=== PATIENT | male | born 1935 | race Asian ===

== ENCOUNTER 2017-09-12 10:24 | Outpatient (CLI) | payer MEDICARE, MEDICAID | END 2017-09-13 11:27 | disposition home or self-care (01) | LOC: SCT 10:24 | PROVIDERS: ATTEND General Practice | DX: I65.29 Occlusion and stenosis of unspecified carotid artery (principal); R22.1 Localized swelling, mass and lump, neck | CPT/HCPCS: 70450-TC; 70490 ==

== ENCOUNTER 2018-02-08 07:27 | Inpatient (IN) | payer MEDICAID, MEDICARE ==
[~2018-02-08] VITALS: Ht 162.6 cm; Wt 55.8 kg
[2018-02-08] VITALS (7 sets, daily range): BP systolic 108–141
[2018-02-08 08:13] LABS: HEMATOCRIT 35.3 % (36-54); HEMOGLOBIN 11.3 g/dL (14.0-18.0); MEAN CORPUSCULAR HEMOGLOBIN 30 pg (27-31); MEAN CORPUSCULAR HGB CONC 32 % (32-36); MEAN CORPUSCULAR VOLUME 93 fL (79.0-98.0); PLATELET COUNT (AUTO) 188 K/uL (130-430); RED BLOOD CELL COUNT(AUTO) 3.81 MIL/uL (4.2-6.2); RED CELL DISTRIBUTION WIDTH 20.7 % (9.0-15.0); WHITE BLOOD COUNT (AUTO) 13.3 K/uL (4.8-10.8)
[2018-02-08 08:30] LABS: ANION GAP 9 (5-15); CALCIUM 12.2 mg/dL (8.4-11.0); CHLORIDE 114 mmol/L (98-107); CREATININE 2.54 mg/dL (0.55-1.30); GLUCOSE 134 mg/dL (70-99); POTASSIUM 4.3 mmol/L (3.5-5.1); SODIUM SERUM 157 mmol/L (136-145); UREA NITROGEN, BLOOD 88 mg/dL (8-21)
[2018-02-08 08:35] LABS: ALANINE AMINOTRANSFERASE 24 U/L (12-78); ASPARTATE AMINOTRANSFERASE 21 U/L (10-37); TOTAL BILIRUBIN 0.4 mg/dL (0.0-1.0)
[2018-02-08] MEDS ORDERED: GASTROGRAFIN 120 ML ONE (08:51)
[2018-02-08 08:52] LABS: BASOPHILS % (MANUAL) 0 % (0-2); EOSINOPHILS % (MANUAL) 11 % (0-7); LYMPHOCYTES % (MANUAL) 20 % (20-46); MONOCYTES % (MANUAL) 2 % (0-11)
[2018-02-08] MEDS ORDERED: LACT1CAP61 GT (10:54)
[2018-02-08] MEDS ORDERED: LEVE500T53 GT (10:54)
[2018-02-08] MEDS ORDERED: VANCOMYCIN (10:54)
[2018-02-08] MEDS ORDERED: CARV3.1246 GT (10:54)
[2018-02-08] MEDS ORDERED: HYDR-3606 GT (10:54)
[2018-02-08] MEDS ORDERED: FER300L GT (10:54)
[2018-02-08] MEDS ORDERED: IPRA42SP NS (10:54)
[2018-02-08] MEDS ORDERED: PRO40 GT (10:54)
[2018-02-08] MEDS ORDERED: FURO-150 GT (10:54)
[2018-02-08] MEDS ORDERED: MERO500V IV (10:54)
[2018-02-08] MEDS ORDERED: TAMS-11 GT (10:54)
[2018-02-08] MEDS ORDERED: ALEN70TA3 GT (10:54)
[2018-02-08] MEDS ORDERED: ALBU2.5V7 INH (10:54)
[2018-02-08] MEDS ORDERED: COLL100 GT (10:54)
[2018-02-08] MEDS ORDERED: LIP10 GT (10:54)
[2018-02-08 11:23] LABS: PROTHROMBIN TIME 9.9 SECS (9.5-12.5)
[2018-02-08] MEDS: cefTRIAXone 1 GM in D5W 50 ML IV SCH (12:30)
[2018-02-08] MEDS ORDERED: NACL 0.9% 1,000 ML IV SCH (12:30)
[2018-02-08] MEDS ORDERED: MUPIROCIN 2% TOPICAL OINTMENT 22 GM NS PRN (15:15)
[2018-02-08] MEDS ORDERED: ONDANSETRON HCL 4 MG/2 ML VIAL IVP PRN (15:15)
[2018-02-08] MEDS ORDERED: MORPHINE 2 MG/ML INJ. SYRINGE IVP PRN (15:15)
[2018-02-08] MEDS ORDERED: DOCUSATE SODIUM 100 MG CAPSULE PO PRN (15:15)
[2018-02-08] MEDS ORDERED: ACETAMINOPHEN 325 MG TABLET PO PRN (15:15)
[2018-02-08] MEDS ORDERED: ZOLPIDEM TARTRATE 5 MG TABLET PO PRN (15:15)
[2018-02-08] MEDS ORDERED: MAGNESIUM SULFATE 50 ML IV PRN (15:15)
[2018-02-08] MEDS: D5/0.45 NS 1,000 ML IV SCH (19:03)
[2018-02-08] MEDS: LORazepam 2 MG/ML VIAL IVP PRN (20:37)
[2018-02-08] MEDS: HEPARIN SODIUM,PORCINE 5000 UNITS/ML VIAL SUBCUT SCH (20:44)
[2018-02-08] MEDS: TAMSULOSIN HCL 0.4 MG CAP GT SCH (20:46)
[2018-02-08] MEDS: CARVEDILOL 3.125 MG TABLET (COREG) GT SCH (20:46)
[2018-02-08] MEDS: levETIRAcetam 500 MG TABLET GT SCH (20:46)
[2018-02-09] MEDS: LORazepam 2 MG/ML VIAL IVP PRN (02:47)
[2018-02-09] MEDS: D5/0.45 NS 1,000 ML IV SCH (02:51)
[2018-02-09 04:28] LABS: BILIRUBIN,URINE NEGATIVE (NEGATIVE); CLARITY/URINE SL CLOUDY (CLEAR); COLOR,URINE YELLOW (YELLOW); GLUCOSE,URINE NEGATIVE (NEGATIVE); KETONES,URINE NEGATIVE (NEGATIVE); LEUKOCYTE ESTERASE ,URINE 1+ (NEGATIVE); NITRITE, URINE NEGATIVE (NEGATIVE); PROTEIN URINE 2+ (NEGATIVE); UROBILINOGEN,URINE 0.2 (0.2-1.0)
[2018-02-09 04:29] LABS: BLOOD, URINE TRACE (NEGATIVE)
[2018-02-09 05:21] LABS: BACTERIA,URINE MANY /HPF (None Seen); MUCUS,URINE None Seen /LPF (None Seen); YEAST,URINE None Seen /HPF (None Seen)
[2018-02-09 06:34] LABS: ANION GAP 5 (5-15); CALCIUM 11.5 mg/dL (8.4-11.0); CHLORIDE 112 mmol/L (98-107); GLUCOSE 222 mg/dL (70-99); POTASSIUM 3.6 mmol/L (3.5-5.1); SODIUM SERUM 156 mmol/L (136-145); UREA NITROGEN, BLOOD 96 mg/dL (8-21)
[2018-02-09 06:35] LABS: BASOPHILS % (AUTO) 0.4 % (0.0-2.0); EOSINOPHILS # (AUTO) 0.2 K/uL (0.0-0.4); EOSINOPHILS % (AUTO) 2.2 % (0.0-4.0); HEMATOCRIT 30.5 % (36-54); HEMOGLOBIN 9.7 g/dL (14.0-18.0); LYMPHOCYTES # (AUTO) 1.4 K/uL (1.0-5.5); LYMPHOCYTES % (AUTO) 13.5 % (20.5-51.5); MEAN CORPUSCULAR HEMOGLOBIN 30 pg (27-31); MEAN CORPUSCULAR HGB CONC 32 % (32-36); MEAN CORPUSCULAR VOLUME 93 fL (79.0-98.0); MONOCYTES # (AUTO) 1.3 K/uL (0.0-1.0); NEUTROPHILS # (AUTO) 7.7 K/uL (1.8-7.7); NEUTROPHILS % (AUTO) 71.9 % (40.0-70.0); PLATELET COUNT (AUTO) 235 K/uL (130-430); RED BLOOD CELL COUNT(AUTO) 3.29 MIL/uL (4.2-6.2); RED CELL DISTRIBUTION WIDTH 20.1 % (9.0-15.0); WHITE BLOOD COUNT (AUTO) 10.6 K/uL (4.8-10.8)
[2018-02-09 07:50] VITALS: BP_SYST 113
[2018-02-09] MEDS: CARVEDILOL 3.125 MG TABLET (COREG) GT SCH ×2 (09:00→21:00)
[2018-02-09] MEDS: levETIRAcetam 500 MG TABLET GT SCH ×2 (09:00→21:00)
[2018-02-09] MEDS: DOCUSATE SODIUM 100 MG/10 ML UDC GT SCH (09:00)
[2018-02-09] MEDS: HEPARIN SODIUM,PORCINE 5000 UNITS/ML VIAL SUBCUT SCH ×2 (09:23→21:30)
[2018-02-09] MEDS: cefTRIAXone 1 GM in D5W 50 ML IV SCH (09:24)
[2018-02-09 12:17] VITALS: BP_SYST 104
[2018-02-09] MEDS: D5W 1,000 ML IV SCH ×2 (12:18→21:32)
[2018-02-09] MEDS ORDERED: ONDANSETRON HCL 4 MG/2 ML VIAL IVP PRN (14:15)
[2018-02-09] MEDS ORDERED: HYDROmorphone 1 MG INJ. 1 MG/ML AMPUL IVP PRN (14:15)
[2018-02-09] MEDS ORDERED: GASTROGRAFIN 120 ML ONE (14:50)
[2018-02-09 16:10] VITALS: BP_SYST 120
[2018-02-09] MEDS ORDERED: DEXTROSE 50% JECT 50 ML DISP.SYRIN IVP ONE (17:15)
[2018-02-09] MEDS ORDERED: DEXTROSE 50% JECT 50 ML DISP.SYRIN IVP PRN (17:30)
[2018-02-09 20:00] VITALS: BP_SYST 118
[2018-02-09] MEDS: TAMSULOSIN HCL 0.4 MG CAP GT SCH (21:00)
[2018-02-09] MEDS: INSULIN REGULAR, HUMAN 100 UNITS/ML, 10 ML VIAL (novoLIN R) SUBCUT PRN (21:30)
[2018-02-10 00:24] VITALS: BP_SYST 138
[2018-02-10] MEDS: D5W 1,000 ML IV SCH ×2 (06:26→16:09)
[2018-02-10 06:31] LABS: BASOPHILS # (AUTO) 0.1 K/uL (0.0-0.2); BASOPHILS % (AUTO) 0.5 % (0.0-2.0); EOSINOPHILS # (AUTO) 1.5 K/uL (0.0-0.4); EOSINOPHILS % (AUTO) 13.9 % (0.0-4.0); HEMATOCRIT 32.1 % (36-54); HEMOGLOBIN 10.4 g/dL (14.0-18.0); LYMPHOCYTES # (AUTO) 1.3 K/uL (1.0-5.5); LYMPHOCYTES % (AUTO) 11.9 % (20.5-51.5); MEAN CORPUSCULAR HEMOGLOBIN 30 pg (27-31); MEAN CORPUSCULAR HGB CONC 32 % (32-36); MEAN CORPUSCULAR VOLUME 92 fL (79.0-98.0); MONOCYTES % (AUTO) 9.4 % (1.7-9.3); NEUTROPHILS # (AUTO) 6.8 K/uL (1.8-7.7); NEUTROPHILS % (AUTO) 64.3 % (40.0-70.0); PLATELET COUNT (AUTO) 235 K/uL (130-430); RED BLOOD CELL COUNT(AUTO) 3.49 MIL/uL (4.2-6.2); RED CELL DISTRIBUTION WIDTH 19.8 % (9.0-15.0); WHITE BLOOD COUNT (AUTO) 10.7 K/uL (4.8-10.8)
[2018-02-10 06:46] LABS: ANION GAP 1 (5-15); CALCIUM 11.1 mg/dL (8.4-11.0); CHLORIDE 109 mmol/L (98-107); CREATININE 3.09 mg/dL (0.55-1.30); GLUCOSE 126 mg/dL (70-99); SODIUM SERUM 152 mmol/L (136-145); UREA NITROGEN, BLOOD 89 mg/dL (8-21)
[2018-02-10 06:57] LABS: POTASSIUM 2.9 mmol/L (3.5-5.1)
[2018-02-10 07:45] VITALS: BP_SYST 137
[2018-02-10] MEDS: DOCUSATE SODIUM 100 MG/10 ML UDC GT SCH (08:49)
[2018-02-10] MEDS: CARVEDILOL 3.125 MG TABLET (COREG) GT SCH ×2 (08:50→21:00)
[2018-02-10] MEDS: POTASSIUM CHLORIDE 20 MEQ TAB.PRT.SR PO PRN (08:50)
[2018-02-10] MEDS: levETIRAcetam 500 MG TABLET GT SCH ×2 (08:50→22:06)
[2018-02-10] MEDS: HEPARIN SODIUM,PORCINE 5000 UNITS/ML VIAL SUBCUT SCH ×2 (08:55→22:05)
[2018-02-10] MEDS ORDERED: POTASSIUM CHLORIDE 20 MEQ/PKT PACKET GT ONE (10:15)
[2018-02-10] MEDS: cefTRIAXone 1 GM in D5W 50 ML IV SCH (10:34)
[2018-02-10] MEDS: INSULIN REGULAR, HUMAN 100 UNITS/ML, 10 ML VIAL (novoLIN R) SUBCUT PRN ×2 (11:37→17:26)
[2018-02-10 12:38] VITALS: BP_SYST 111
[2018-02-10 15:54] LABS: ANION GAP 4 (5-15); CALCIUM 10.5 mg/dL (8.4-11.0); CHLORIDE 109 mmol/L (98-107); CREATININE 3.21 mg/dL (0.55-1.30); GLUCOSE 179 mg/dL (70-99); POTASSIUM 3.9 mmol/L (3.5-5.1); SODIUM SERUM 151 mmol/L (136-145); UREA NITROGEN, BLOOD 86 mg/dL (8-21)
[2018-02-10 16:34] VITALS: BP_SYST 136
[2018-02-10 19:10] VITALS: BP_SYST 116
[2018-02-10 22:03] LABS: CHLORIDE,URINE RANDOM 15 mmol/L (55-125)
[2018-02-10] MEDS: TAMSULOSIN HCL 0.4 MG CAP GT SCH (22:06)
[2018-02-10 23:37] VITALS: BP_SYST 116
[2018-02-11] MEDS: MORPHINE 2 MG/ML INJ. SYRINGE IVP PRN (05:14)
[2018-02-11] MEDS: INSULIN REGULAR, HUMAN 100 UNITS/ML, 10 ML VIAL (novoLIN R) SUBCUT PRN ×4 (06:05→22:26)
[2018-02-11 07:38] VITALS: BP_SYST 119
[2018-02-11 09:23] LABS: BASOPHILS # (AUTO) 0.1 K/uL (0.0-0.2); BASOPHILS % (AUTO) 0.9 % (0.0-2.0); EOSINOPHILS # (AUTO) 0.9 K/uL (0.0-0.4); HEMATOCRIT 31.5 % (36-54); HEMOGLOBIN 10.3 g/dL (14.0-18.0); LYMPHOCYTES # (AUTO) 1.2 K/uL (1.0-5.5); LYMPHOCYTES % (AUTO) 13.8 % (20.5-51.5); MEAN CORPUSCULAR HEMOGLOBIN 30 pg (27-31); MEAN CORPUSCULAR HGB CONC 33 % (32-36); MEAN CORPUSCULAR VOLUME 93 fL (79.0-98.0); MONOCYTES # (AUTO) 0.7 K/uL (0.0-1.0); MONOCYTES % (AUTO) 7.5 % (1.7-9.3); NEUTROPHILS # (AUTO) 5.9 K/uL (1.8-7.7); PLATELET COUNT (AUTO) 215 K/uL (130-430); RED BLOOD CELL COUNT(AUTO) 3.39 MIL/uL (4.2-6.2); RED CELL DISTRIBUTION WIDTH 19.5 % (9.0-15.0); WHITE BLOOD COUNT (AUTO) 8.8 K/uL (4.8-10.8)
[2018-02-11 09:24] VITALS: BP_SYST 119
[2018-02-11] MEDS: DOCUSATE SODIUM 100 MG/10 ML UDC GT SCH (09:26)
[2018-02-11] MEDS: levETIRAcetam 500 MG TABLET GT SCH ×2 (09:26→22:15)
[2018-02-11] MEDS: CARVEDILOL 3.125 MG TABLET (COREG) GT SCH ×2 (09:26→22:24)
[2018-02-11 09:28] LABS: ANION GAP 6 (5-15); CALCIUM 11.1 mg/dL (8.4-11.0); CHLORIDE 107 mmol/L (98-107); CREATININE 3.03 mg/dL (0.55-1.30); GLUCOSE 232 mg/dL (70-99); POTASSIUM 3.3 mmol/L (3.5-5.1); SODIUM SERUM 150 mmol/L (136-145); UREA NITROGEN, BLOOD 79 mg/dL (8-21)
[2018-02-11] MEDS: HEPARIN SODIUM,PORCINE 5000 UNITS/ML VIAL SUBCUT SCH ×2 (09:29→22:16)
[2018-02-11] MEDS: cefTRIAXone 1 GM in D5W 50 ML IV SCH (09:30)
[2018-02-11 11:49] LABS: URINE SODIUM, RANDOM 10 mmol/L (40-220)
[2018-02-11] MEDS: POTASSIUM CHLORIDE 20 MEQ TAB.PRT.SR PO PRN (11:54)
[2018-02-11 12:20] VITALS: BP_SYST 109
[2018-02-11 12:46] LABS: NEUTROPHILS % (AUTO) 67.8 % (40.0-70.0)
[2018-02-11] MEDS: 0.45% NACL 1,000 ML IV SCH (16:25)
[2018-02-11 16:57] VITALS: BP_SYST 107
[2018-02-11 19:30] VITALS: BP_SYST 117
[2018-02-11] MEDS: LORazepam 2 MG/ML VIAL IVP PRN (19:39)
[2018-02-11] MEDS: TAMSULOSIN HCL 0.4 MG CAP GT SCH (22:15)
[2018-02-11 23:33] VITALS: BP_SYST 111
[2018-02-12] MEDS: 0.45% NACL 1,000 ML IV SCH ×2 (04:20→11:30)
[2018-02-12] MEDS: MORPHINE 2 MG/ML INJ. SYRINGE IVP PRN (04:21)
[2018-02-12 06:07] LABS: ANION GAP 0 (5-15); CALCIUM 11.1 mg/dL (8.4-11.0); CHLORIDE 106 mmol/L (98-107); CREATININE 2.47 mg/dL (0.55-1.30); GLUCOSE 286 mg/dL (70-99); SODIUM SERUM 145 mmol/L (136-145); UREA NITROGEN, BLOOD 65 mg/dL (8-21)
[2018-02-12] MEDS: INSULIN REGULAR, HUMAN 100 UNITS/ML, 10 ML VIAL (novoLIN R) SUBCUT PRN ×4 (06:12→21:34)
[2018-02-12 06:15] LABS: BASOPHILS % (AUTO) 0.4 % (0.0-2.0); EOSINOPHILS # (AUTO) 0.8 K/uL (0.0-0.4); EOSINOPHILS % (AUTO) 8.6 % (0.0-4.0); HEMATOCRIT 26.3 % (36-54); HEMOGLOBIN 8.5 g/dL (14.0-18.0); LYMPHOCYTES % (AUTO) 11.2 % (20.5-51.5); MEAN CORPUSCULAR HEMOGLOBIN 30 pg (27-31); MEAN CORPUSCULAR HGB CONC 32 % (32-36); MEAN CORPUSCULAR VOLUME 92 fL (79.0-98.0); MONOCYTES # (AUTO) 0.6 K/uL (0.0-1.0); MONOCYTES % (AUTO) 6.9 % (1.7-9.3); NEUTROPHILS # (AUTO) 6.4 K/uL (1.8-7.7); NEUTROPHILS % (AUTO) 72.9 % (40.0-70.0); PLATELET COUNT (AUTO) 202 K/uL (130-430); RED BLOOD CELL COUNT(AUTO) 2.86 MIL/uL (4.2-6.2); RED CELL DISTRIBUTION WIDTH 19.7 % (9.0-15.0); WHITE BLOOD COUNT (AUTO) 8.8 K/uL (4.8-10.8)
[2018-02-12 06:55] LABS: POTASSIUM 2.9 mmol/L (3.5-5.1)
[2018-02-12] MEDS: POTASSIUM CHLORIDE 20 MEQ TAB.PRT.SR PO PRN (07:02)
[2018-02-12 08:25] VITALS: BP_SYST 121
[2018-02-12] MEDS: levETIRAcetam 500 MG TABLET GT SCH ×2 (08:26→21:32)
[2018-02-12] MEDS: CARVEDILOL 3.125 MG TABLET (COREG) GT SCH ×2 (08:27→21:32)
[2018-02-12] MEDS: DOCUSATE SODIUM 100 MG/10 ML UDC GT SCH (08:27)
[2018-02-12] MEDS: LORazepam 2 MG/ML VIAL IVP PRN (08:28)
[2018-02-12] MEDS: cefTRIAXone 1 GM in D5W 50 ML IV SCH (08:28)
[2018-02-12] MEDS: HEPARIN SODIUM,PORCINE 5000 UNITS/ML VIAL SUBCUT SCH ×2 (08:29→21:35)
[2018-02-12 11:31] VITALS: BP_SYST 116
[2018-02-12 13:54] LABS: ANION GAP 1 (5-15); CALCIUM 11.3 mg/dL (8.4-11.0); CHLORIDE 112 mmol/L (98-107); CREATININE 2.28 mg/dL (0.55-1.30); GLUCOSE 201 mg/dL (70-99); SODIUM SERUM 148 mmol/L (136-145); UREA NITROGEN, BLOOD 61 mg/dL (8-21)
[2018-02-12 13:59] LABS: POTASSIUM 4.2 mmol/L (3.5-5.1)
[2018-02-12 15:13] VITALS: BP_SYST 118
[2018-02-12] MEDS: NACL 0.9% 1,000 ML IV SCH (16:20)
[2018-02-12 19:50] VITALS: BP_SYST 126
[2018-02-12] MEDS: TAMSULOSIN HCL 0.4 MG CAP GT SCH (21:31)
[2018-02-13 00:10] VITALS: BP_SYST 119
[2018-02-13] MEDS: INSULIN REGULAR, HUMAN 100 UNITS/ML, 10 ML VIAL (novoLIN R) SUBCUT PRN ×4 (06:23→22:07)
[2018-02-13 07:46] LABS: BASOPHILS % (AUTO) 0.1 % (0.0-2.0); EOSINOPHILS # (AUTO) 0.6 K/uL (0.0-0.4); EOSINOPHILS % (AUTO) 6.3 % (0.0-4.0); HEMOGLOBIN 9.5 g/dL (14.0-18.0); LYMPHOCYTES # (AUTO) 1.1 K/uL (1.0-5.5); LYMPHOCYTES % (AUTO) 10.9 % (20.5-51.5); MEAN CORPUSCULAR HEMOGLOBIN 30 pg (27-31); MEAN CORPUSCULAR HGB CONC 33 % (32-36); MEAN CORPUSCULAR VOLUME 92 fL (79.0-98.0); MONOCYTES # (AUTO) 0.7 K/uL (0.0-1.0); MONOCYTES % (AUTO) 6.7 % (1.7-9.3); NEUTROPHILS # (AUTO) 7.4 K/uL (1.8-7.7); PLATELET COUNT (AUTO) 211 K/uL (130-430); RED BLOOD CELL COUNT(AUTO) 3.14 MIL/uL (4.2-6.2); RED CELL DISTRIBUTION WIDTH 20.2 % (9.0-15.0); WHITE BLOOD COUNT (AUTO) 9.8 K/uL (4.8-10.8)
[2018-02-13 07:55] LABS: ANION GAP 2 (5-15); CALCIUM 12.2 mg/dL (8.4-11.0); CHLORIDE 107 mmol/L (98-107); CREATININE 2.22 mg/dL (0.55-1.30); GLUCOSE 267 mg/dL (70-99); POTASSIUM 3.3 mmol/L (3.5-5.1); SODIUM SERUM 147 mmol/L (136-145); UREA NITROGEN, BLOOD 58 mg/dL (8-21)
[2018-02-13] MEDS: POTASSIUM CHLORIDE 20 MEQ TAB.PRT.SR PO PRN (08:35)
[2018-02-13] MEDS: cefTRIAXone 1 GM in D5W 50 ML IV SCH (08:35)
[2018-02-13] MEDS: levETIRAcetam 500 MG TABLET GT SCH ×2 (08:35→22:04)
[2018-02-13] MEDS: DOCUSATE SODIUM 100 MG/10 ML UDC GT SCH (08:35)
[2018-02-13] MEDS: CARVEDILOL 3.125 MG TABLET (COREG) GT SCH ×2 (08:36→22:05)
[2018-02-13] MEDS: HEPARIN SODIUM,PORCINE 5000 UNITS/ML VIAL SUBCUT SCH ×2 (08:38→22:08)
[2018-02-13 08:48] VITALS: BP_SYST 137
[2018-02-13] MEDS ORDERED: AMIKACIN SULFATE 500 MG in D5W 100 ML IV SCH (11:00)
[2018-02-13 11:34] VITALS: BP_SYST 126
[2018-02-13] MEDS: CEFTAZIDIME/AVIBACTAM 0.94 GM in NS 100 ML IV SCH (14:39)
[2018-02-13 15:37] VITALS: BP_SYST 109
[2018-02-13] MEDS: NACL 0.9% 1,000 ML IV SCH (17:55)
[2018-02-13 20:00] VITALS: BP_SYST 139
[2018-02-13] MEDS: TAMSULOSIN HCL 0.4 MG CAP GT SCH (22:04)
[2018-02-14 01:14] VITALS: BP_SYST 130
[2018-02-14] MEDS: INSULIN REGULAR, HUMAN 100 UNITS/ML, 10 ML VIAL (novoLIN R) SUBCUT PRN ×4 (06:40→20:30)
[2018-02-14 07:48] VITALS: BP_SYST 111
[2018-02-14 08:40] VITALS: BP_SYST 111
[2018-02-14] MEDS: levETIRAcetam 500 MG TABLET GT SCH ×2 (09:10→20:24)
[2018-02-14] MEDS: DOCUSATE SODIUM 100 MG/10 ML UDC GT SCH (09:10)
[2018-02-14] MEDS: CARVEDILOL 3.125 MG TABLET (COREG) GT SCH ×2 (09:11→20:25)
[2018-02-14] MEDS: HEPARIN SODIUM,PORCINE 5000 UNITS/ML VIAL SUBCUT SCH ×2 (09:13→20:31)
[2018-02-14 11:24] VITALS: BP_SYST 107
[2018-02-14] MEDS: CEFTAZIDIME/AVIBACTAM 0.94 GM in NS 100 ML IV SCH (12:32)
[2018-02-14 15:25] VITALS: BP_SYST 134
[2018-02-14] MEDS: NACL 0.9% 1,000 ML IV SCH (16:08)
[2018-02-14 20:00] VITALS: BP_SYST 130
[2018-02-14] MEDS: TAMSULOSIN HCL 0.4 MG CAP GT SCH (20:24)
[2018-02-15 00:05] VITALS: BP_SYST 113
[2018-02-15] MEDS: INSULIN REGULAR, HUMAN 100 UNITS/ML, 10 ML VIAL (novoLIN R) SUBCUT PRN ×4 (06:15→23:06)
[2018-02-15] MEDS: CARVEDILOL 3.125 MG TABLET (COREG) GT SCH ×2 (08:29→22:31)
[2018-02-15] MEDS: DOCUSATE SODIUM 100 MG/10 ML UDC GT SCH (08:29)
[2018-02-15] MEDS: levETIRAcetam 500 MG TABLET GT SCH ×2 (08:29→22:32)
[2018-02-15] MEDS: HEPARIN SODIUM,PORCINE 5000 UNITS/ML VIAL SUBCUT SCH ×2 (08:30→22:32)
[2018-02-15 12:02] VITALS: BP_SYST 136
[2018-02-15] MEDS: CEFTAZIDIME/AVIBACTAM 0.94 GM in NS 100 ML IV SCH (12:25)
[2018-02-15] MEDS: NACL 0.9% 1,000 ML IV SCH (15:21)
[2018-02-15 16:06] VITALS: BP_SYST 139
[2018-02-15 19:50] VITALS: BP_SYST 135
[2018-02-15] MEDS: TAMSULOSIN HCL 0.4 MG CAP GT SCH (22:32)
[2018-02-15 23:39] VITALS: BP_SYST 145
[2018-02-16] MEDS: INSULIN REGULAR, HUMAN 100 UNITS/ML, 10 ML VIAL (novoLIN R) SUBCUT PRN ×3 (06:25→21:46)
[2018-02-16 07:09] LABS: ALANINE AMINOTRANSFERASE 27 U/L (12-78); ALBUMIN 1.9 g/dL (3.4-4.8); ASPARTATE AMINOTRANSFERASE 24 U/L (10-37); CHLORIDE 118 mmol/L (98-107); CREATININE 1.99 mg/dL (0.55-1.30); GLUCOSE 155 mg/dL (70-99); POTASSIUM 3.2 mmol/L (3.5-5.1); SODIUM SERUM 155 mmol/L (136-145); TOTAL BILIRUBIN 0.2 mg/dL (0.0-1.0); UREA NITROGEN, BLOOD 57 mg/dL (8-21)
[2018-02-16 07:21] LABS: ANION GAP < 3 (5-15); CALCIUM 13.1 mg/dL (8.4-11.0)
[2018-02-16 08:00] VITALS: BP_SYST 128
[2018-02-16] MEDS: DOCUSATE SODIUM 100 MG/10 ML UDC GT SCH (08:44)
[2018-02-16] MEDS: levETIRAcetam 500 MG TABLET GT SCH ×2 (08:44→21:42)
[2018-02-16] MEDS: CARVEDILOL 3.125 MG TABLET (COREG) GT SCH ×2 (08:45→21:42)
[2018-02-16] MEDS: HEPARIN SODIUM,PORCINE 5000 UNITS/ML VIAL SUBCUT SCH ×2 (08:57→21:43)
[2018-02-16] MEDS: CEFTAZIDIME/AVIBACTAM 0.94 GM in NS 100 ML IV SCH (11:04)
[2018-02-16] MEDS: POTASSIUM CHLORIDE 20 MEQ TAB.PRT.SR PO PRN (11:04)
[2018-02-16 12:00] VITALS: BP_SYST 149
[2018-02-16] MEDS: NACL 0.9% 1,000 ML IV SCH (15:00)
[2018-02-16 16:52] VITALS: BP_SYST 136
[2018-02-16 20:09] VITALS: BP_SYST 113
[2018-02-16] MEDS: TAMSULOSIN HCL 0.4 MG CAP GT SCH (21:42)
[2018-02-16] MEDS: ALBUTEROL SULFATE 0.083% 2.5 MG/3 ML VIAL.NEB INH PRN ×2 (23:50→23:53)
[2018-02-17 00:01] VITALS: BP_SYST 104
[2018-02-17] MEDS: INSULIN REGULAR, HUMAN 100 UNITS/ML, 10 ML VIAL (novoLIN R) SUBCUT PRN ×3 (06:20→20:39)
[2018-02-17 06:54] LABS: ANION GAP 4 (5-15); CREATININE 2.28 mg/dL (0.55-1.30); GLUCOSE 204 mg/dL (70-99); POTASSIUM 3.3 mmol/L (3.5-5.1); UREA NITROGEN, BLOOD 69 mg/dL (8-21)
[2018-02-17 07:18] LABS: SODIUM SERUM 161 mmol/L (136-145)
[2018-02-17 07:19] LABS: CHLORIDE 120 mmol/L (98-107)
[2018-02-17 07:20] LABS: CALCIUM 13.3 mg/dL (8.4-11.0)
[2018-02-17] MEDS: ALBUTEROL SULFATE 0.083% 2.5 MG/3 ML VIAL.NEB INH PRN (07:36)
[2018-02-17] MEDS: CARVEDILOL 3.125 MG TABLET (COREG) GT SCH ×2 (09:00→20:25)
[2018-02-17] MEDS: DOCUSATE SODIUM 100 MG/10 ML UDC GT SCH (09:02)
[2018-02-17] MEDS: POTASSIUM CHLORIDE 20 MEQ TAB.PRT.SR PO PRN (09:02)
[2018-02-17] MEDS: levETIRAcetam 500 MG TABLET GT SCH ×2 (09:03→20:25)
[2018-02-17] MEDS: HEPARIN SODIUM,PORCINE 5000 UNITS/ML VIAL SUBCUT SCH ×2 (09:07→20:28)
[2018-02-17 09:17] VITALS: BP_SYST 107
[2018-02-17] MEDS: CEFTAZIDIME/AVIBACTAM 0.94 GM in NS 100 ML IV SCH (11:23)
[2018-02-17] MEDS: 0.45% NACL 1,000 ML IV SCH ×2 (11:28→21:15)
[2018-02-17 12:33] VITALS: BP_SYST 121
[2018-02-17] MEDS ORDERED: PAMIDRONATE DISODIUM 30 MG in NS 500 ML IV ONE (13:00)
[2018-02-17 16:18] LABS: EOSINOPHILS # (AUTO) 0.1 K/uL (0.0-0.4); MEAN CORPUSCULAR HEMOGLOBIN 29 pg (27-31)
[2018-02-17 16:23] LABS: BASOPHILS # (AUTO) 0.3 K/uL (0.0-0.2); BASOPHILS % (AUTO) 2.5 % (0.0-2.0); EOSINOPHILS % (AUTO) 0.7 % (0.0-4.0); HEMATOCRIT 27.2 % (36-54); LYMPHOCYTES # (AUTO) 0.8 K/uL (1.0-5.5); LYMPHOCYTES % (AUTO) 7.9 % (20.5-51.5); MEAN CORPUSCULAR HGB CONC 30 % (32-36); MEAN CORPUSCULAR VOLUME 97 fL (79.0-98.0); MONOCYTES # (AUTO) 0.5 K/uL (0.0-1.0); MONOCYTES % (AUTO) 5.3 % (1.7-9.3); NEUTROPHILS # (AUTO) 8.6 K/uL (1.8-7.7); NEUTROPHILS % (AUTO) 83.6 % (40.0-70.0); PLATELET COUNT (AUTO) 234 K/uL (130-430); RED BLOOD CELL COUNT(AUTO) 2.81 MIL/uL (4.2-6.2); RED CELL DISTRIBUTION WIDTH 20.1 % (9.0-15.0); WHITE BLOOD COUNT (AUTO) 10.3 K/uL (4.8-10.8)
[2018-02-17 16:30] LABS: HEMOGLOBIN 8.2 g/dL (14.0-18.0)
[2018-02-17 17:03] VITALS: BP_SYST 131
[2018-02-17 20:10] VITALS: BP_SYST 138
[2018-02-17] MEDS: TAMSULOSIN HCL 0.4 MG CAP GT SCH (20:25)
[2018-02-17 23:45] VITALS: BP_SYST 127
[2018-02-18] MEDS: ALBUTEROL SULFATE 0.083% 2.5 MG/3 ML VIAL.NEB INH PRN (03:28)
[2018-02-18] MEDS: 0.45% NACL 1,000 ML IV SCH (06:01)
[2018-02-18 06:51] LABS: BASOPHILS % (AUTO) 0.4 % (0.0-2.0); HEMATOCRIT 23.8 % (36-54); HEMOGLOBIN 7.5 g/dL (14.0-18.0); LYMPHOCYTES # (AUTO) 1.2 K/uL (1.0-5.5); LYMPHOCYTES % (AUTO) 15.1 % (20.5-51.5); MEAN CORPUSCULAR HEMOGLOBIN 30 pg (27-31); MEAN CORPUSCULAR HGB CONC 31 % (32-36); MEAN CORPUSCULAR VOLUME 95 fL (79.0-98.0); MONOCYTES # (AUTO) 0.5 K/uL (0.0-1.0); MONOCYTES % (AUTO) 6.3 % (1.7-9.3); NEUTROPHILS # (AUTO) 5.2 K/uL (1.8-7.7); NEUTROPHILS % (AUTO) 65.2 % (40.0-70.0); PLATELET COUNT (AUTO) 197 K/uL (130-430); RED BLOOD CELL COUNT(AUTO) 2.51 MIL/uL (4.2-6.2); RED CELL DISTRIBUTION WIDTH 19.2 % (9.0-15.0); WHITE BLOOD COUNT (AUTO) 7.9 K/uL (4.8-10.8)
[2018-02-18 07:14] LABS: ANION GAP 5 (5-15); CREATININE 2.07 mg/dL (0.55-1.30); GLUCOSE 164 mg/dL (70-99); POTASSIUM 3.5 mmol/L (3.5-5.1); UREA NITROGEN, BLOOD 63 mg/dL (8-21)
[2018-02-18 07:25] LABS: ALANINE AMINOTRANSFERASE 21 U/L (12-78); ALBUMIN 1.8 g/dL (3.4-4.8); ASPARTATE AMINOTRANSFERASE 29 U/L (10-37); PHOSPHORUS 4.2 mg/dL (2.7-4.5); TOTAL BILIRUBIN 0.1 mg/dL (0.0-1.0)
[2018-02-18] MEDS ORDERED: GASTROGRAFIN 120 ML ONE (07:27)
[2018-02-18] MEDS ORDERED: D5/0.45 NS 1,000 ML IV SCH (07:30)
[2018-02-18 07:40] LABS: SODIUM SERUM 161 mmol/L (136-145)
[2018-02-18 07:41] LABS: CALCIUM 13.2 mg/dL (8.4-11.0); CHLORIDE 121 mmol/L (98-107)
[2018-02-18 08:00] VITALS: BP_SYST 132
[2018-02-18] MEDS: DOCUSATE SODIUM 100 MG/10 ML UDC GT SCH (09:00)
[2018-02-18] MEDS: levETIRAcetam 500 MG TABLET GT SCH ×2 (09:15→22:02)
[2018-02-18] MEDS: CARVEDILOL 3.125 MG TABLET (COREG) GT SCH ×2 (09:16→22:04)
[2018-02-18] MEDS: HEPARIN SODIUM,PORCINE 5000 UNITS/ML VIAL SUBCUT SCH ×2 (09:18→22:01)
[2018-02-18] MEDS: D5W 1,000 ML IV SCH ×2 (10:09→17:34)
[2018-02-18 12:00] VITALS: BP_SYST 136
[2018-02-18] MEDS: CEFTAZIDIME/AVIBACTAM 0.94 GM in NS 100 ML IV SCH (12:32)
[2018-02-18 16:52] VITALS: BP_SYST 137
[2018-02-18 19:05] VITALS: BP_SYST 121
[2018-02-18] MEDS: TAMSULOSIN HCL 0.4 MG CAP GT SCH (22:02)
[2018-02-18 23:15] VITALS: BP_SYST 112
[2018-02-19] MEDS: D5W 1,000 ML IV SCH ×3 (01:25→17:37)
[2018-02-19 07:47] LABS: ANION GAP 2 (5-15); CALCIUM 11.5 mg/dL (8.4-11.0); CHLORIDE 116 mmol/L (98-107); CREATININE 1.77 mg/dL (0.55-1.30); GLUCOSE 115 mg/dL (70-99); POTASSIUM 3.5 mmol/L (3.5-5.1); SODIUM SERUM 151 mmol/L (136-145); UREA NITROGEN, BLOOD 47 mg/dL (8-21)
[2018-02-19 08:00] VITALS: BP_SYST 135
[2018-02-19] MEDS ORDERED: MORPHINE 2 MG/ML INJ. SYRINGE IVP PRN (08:30)
[2018-02-19] MEDS: DOCUSATE SODIUM 100 MG/10 ML UDC GT SCH (09:00)
[2018-02-19] MEDS: HEPARIN SODIUM,PORCINE 5000 UNITS/ML VIAL SUBCUT SCH ×2 (09:29→22:48)
[2018-02-19] MEDS: levETIRAcetam 500 MG TABLET GT SCH ×2 (09:30→22:35)
[2018-02-19] MEDS: CARVEDILOL 3.125 MG TABLET (COREG) GT SCH ×2 (09:30→22:36)
[2018-02-19] MEDS ORDERED: CEFTAZIDIME/AVIBACTAM 0.94 GM in NS 100 ML IV SCH (12:00)
[2018-02-19 12:13] VITALS: BP_SYST 100
[2018-02-19 16:03] VITALS: BP_SYST 125
[2018-02-19 20:54] VITALS: BP_SYST 131
[2018-02-19] MEDS: TAMSULOSIN HCL 0.4 MG CAP GT SCH (22:35)
[2018-02-19] MEDS: INSULIN REGULAR, HUMAN 100 UNITS/ML, 10 ML VIAL (novoLIN R) SUBCUT PRN (22:48)
[2018-02-20 01:47] VITALS: BP_SYST 116
[2018-02-20] MEDS: D5W 1,000 ML IV SCH ×4 (02:49→21:29)
[2018-02-20 07:20] VITALS: BP_SYST 116
[2018-02-20 07:25] LABS: HEMOGLOBIN 7.2 g/dL (14.0-18.0); RED BLOOD CELL COUNT(AUTO) 2.49 MIL/uL (4.2-6.2); WHITE BLOOD COUNT (AUTO) 5.9 K/uL (4.8-10.8)
[2018-02-20 07:26] LABS: HEMATOCRIT 22.9 % (36-54); MEAN CORPUSCULAR HEMOGLOBIN 29 pg (27-31); MEAN CORPUSCULAR HGB CONC 32 % (32-36); MEAN CORPUSCULAR VOLUME 92 fL (79.0-98.0); PLATELET COUNT (AUTO) 195 K/uL (130-430)
[2018-02-20 07:27] LABS: LYMPHOCYTES % (AUTO) 19.6 % (20.5-51.5); MONOCYTES % (AUTO) 6.5 % (1.7-9.3); NEUTROPHILS % (AUTO) 61.6 % (40.0-70.0)
[2018-02-20 07:28] LABS: BASOPHILS % (AUTO) 0.7 % (0.0-2.0); EOSINOPHILS # (AUTO) 0.7 K/uL (0.0-0.4); EOSINOPHILS % (AUTO) 11.6 % (0.0-4.0); LYMPHOCYTES # (AUTO) 1.2 K/uL (1.0-5.5); MONOCYTES # (AUTO) 0.4 K/uL (0.0-1.0); NEUTROPHILS # (AUTO) 3.6 K/uL (1.8-7.7)
[2018-02-20 07:31] LABS: ANION GAP 5 (5-15); CALCIUM 10.4 mg/dL (8.4-11.0); CHLORIDE 107 mmol/L (98-107); GLUCOSE 129 mg/dL (70-99); SODIUM SERUM 143 mmol/L (136-145); UREA NITROGEN, BLOOD 35 mg/dL (8-21)
[2018-02-20 07:42] LABS: POTASSIUM 2.5 mmol/L (3.5-5.1)
[2018-02-20 08:30] VITALS: BP_SYST 134
[2018-02-20] MEDS ORDERED: POTASSIUM CHLORIDE 20 MEQ TAB.PRT.SR PO ONE (09:00)
[2018-02-20] MEDS: DOCUSATE SODIUM 100 MG/10 ML UDC GT SCH (09:28)
[2018-02-20] MEDS: levETIRAcetam 500 MG TABLET GT SCH ×2 (09:28→21:31)
[2018-02-20] MEDS: HEPARIN SODIUM,PORCINE 5000 UNITS/ML VIAL SUBCUT SCH ×2 (09:29→21:38)
[2018-02-20] MEDS ORDERED: POTASSIUM CHLORIDE 40 MEQ in NS 250 ML IV ONE (09:30)
[2018-02-20] MEDS: CARVEDILOL 3.125 MG TABLET (COREG) GT SCH ×2 (09:34→21:34)
[2018-02-20] MEDS: INSULIN REGULAR, HUMAN 100 UNITS/ML, 10 ML VIAL (novoLIN R) SUBCUT PRN ×3 (11:50→21:50)
[2018-02-20 12:02] VITALS: BP_SYST 135
[2018-02-20 16:02] VITALS: BP_SYST 149
[2018-02-20] MEDS: TAMSULOSIN HCL 0.4 MG CAP GT SCH (21:31)
[2018-02-20 21:34] VITALS: BP_SYST 141
[2018-02-21 01:18] VITALS: BP_SYST 137
[2018-02-21] MEDS: D5W 1,000 ML IV SCH (05:08)
[2018-02-21 08:00] VITALS: BP_SYST 142
[2018-02-21 08:00] LABS: ANION GAP 4 (5-15); BASOPHILS % (AUTO) 0.4 % (0.0-2.0); CALCIUM 10.1 mg/dL (8.4-11.0); CHLORIDE 106 mmol/L (98-107); CREATININE 1.41 mg/dL (0.55-1.30); EOSINOPHILS # (AUTO) 0.5 K/uL (0.0-0.4); EOSINOPHILS % (AUTO) 12.2 % (0.0-4.0); GLUCOSE 133 mg/dL (70-99); HEMATOCRIT 22.8 % (36-54); HEMOGLOBIN 7.5 g/dL (14.0-18.0); LYMPHOCYTES % (AUTO) 23.5 % (20.5-51.5); MEAN CORPUSCULAR HEMOGLOBIN 30 pg (27-31); MEAN CORPUSCULAR HGB CONC 33 % (32-36); MEAN CORPUSCULAR VOLUME 90 fL (79.0-98.0); MONOCYTES # (AUTO) 0.4 K/uL (0.0-1.0); MONOCYTES % (AUTO) 8.9 % (1.7-9.3); NEUTROPHILS # (AUTO) 2.5 K/uL (1.8-7.7); PLATELET COUNT (AUTO) 173 K/uL (130-430); RED BLOOD CELL COUNT(AUTO) 2.52 MIL/uL (4.2-6.2); RED CELL DISTRIBUTION WIDTH 17.9 % (9.0-15.0); SODIUM SERUM 142 mmol/L (136-145); UREA NITROGEN, BLOOD 28 mg/dL (8-21); WHITE BLOOD COUNT (AUTO) 4.4 K/uL (4.8-10.8)
[2018-02-21 08:13] LABS: POTASSIUM 2.8 mmol/L (3.5-5.1)
[2018-02-21] MEDS: DOCUSATE SODIUM 100 MG/10 ML UDC GT SCH (09:00)
[2018-02-21] MEDS: POTASSIUM CHLORIDE 20 MEQ TAB.PRT.SR PO PRN (09:01)
[2018-02-21] MEDS: levETIRAcetam 500 MG TABLET GT SCH ×2 (09:01→20:28)
[2018-02-21] MEDS: CARVEDILOL 3.125 MG TABLET (COREG) GT SCH ×2 (09:01→20:27)
[2018-02-21] MEDS: HEPARIN SODIUM,PORCINE 5000 UNITS/ML VIAL SUBCUT SCH ×2 (09:02→20:36)
[2018-02-21] MEDS ORDERED: POTASSIUM CHLORIDE 20 MEQ/PKT PACKET PO ONE ×2 (11:00→12:00)
[2018-02-21 12:00] VITALS: BP_SYST 99
[2018-02-21 13:04] LABS: TOTAL IRON BIND. CAPACITY 221 ug/dL (250-450)
[2018-02-21 14:24] LABS: ANION GAP 3 (5-15); CALCIUM 9.9 mg/dL (8.4-11.0); CHLORIDE 106 mmol/L (98-107); CREATININE 1.39 mg/dL (0.55-1.30); GLUCOSE 179 mg/dL (70-99); POTASSIUM 4.1 mmol/L (3.5-5.1); SODIUM SERUM 140 mmol/L (136-145); UREA NITROGEN, BLOOD 26 mg/dL (8-21)
[2018-02-21 16:08] VITALS: BP_SYST 129
[2018-02-21] MEDS: 0.45% NACL 1,000 ML IV SCH (17:04)
[2018-02-21] MEDS: INSULIN REGULAR, HUMAN 100 UNITS/ML, 10 ML VIAL (novoLIN R) SUBCUT PRN (17:08)
[2018-02-21 20:23] VITALS: BP_SYST 136
[2018-02-21] MEDS: TAMSULOSIN HCL 0.4 MG CAP GT SCH (20:28)
[2018-02-22 00:41] VITALS: BP_SYST 129
[2018-02-22] MEDS: 0.45% NACL 1,000 ML IV SCH (02:59)
[2018-02-22 07:30] LABS: BASOPHILS % (AUTO) 0.3 % (0.0-2.0); EOSINOPHILS # (AUTO) 0.5 K/uL (0.0-0.4); EOSINOPHILS % (AUTO) 11.3 % (0.0-4.0); HEMATOCRIT 22.7 % (36-54); HEMOGLOBIN 7.4 g/dL (14.0-18.0); LYMPHOCYTES % (AUTO) 22.5 % (20.5-51.5); MEAN CORPUSCULAR HEMOGLOBIN 30 pg (27-31); MEAN CORPUSCULAR HGB CONC 33 % (32-36); MEAN CORPUSCULAR VOLUME 92 fL (79.0-98.0); MONOCYTES # (AUTO) 0.4 K/uL (0.0-1.0); MONOCYTES % (AUTO) 8.9 % (1.7-9.3); NEUTROPHILS # (AUTO) 2.7 K/uL (1.8-7.7); PLATELET COUNT (AUTO) 180 K/uL (130-430); RED BLOOD CELL COUNT(AUTO) 2.48 MIL/uL (4.2-6.2); RED CELL DISTRIBUTION WIDTH 18.8 % (9.0-15.0); WHITE BLOOD COUNT (AUTO) 4.6 K/uL (4.8-10.8)
[2018-02-22 07:39] VITALS: BP_SYST 141
[2018-02-22 07:50] LABS: ANION GAP 2 (5-15); CALCIUM 10.2 mg/dL (8.4-11.0); CHLORIDE 108 mmol/L (98-107); CREATININE 1.31 mg/dL (0.55-1.30); GLUCOSE 134 mg/dL (70-99); POTASSIUM 3.5 mmol/L (3.5-5.1); SODIUM SERUM 139 mmol/L (136-145); UREA NITROGEN, BLOOD 22 mg/dL (8-21)
[2018-02-22] MEDS: levETIRAcetam 500 MG TABLET GT SCH (09:09)
[2018-02-22] MEDS: CARVEDILOL 3.125 MG TABLET (COREG) GT SCH (09:09)
[2018-02-22] MEDS: DOCUSATE SODIUM 100 MG/10 ML UDC GT SCH (09:09)
[2018-02-22] MEDS: HEPARIN SODIUM,PORCINE 5000 UNITS/ML VIAL SUBCUT SCH (09:11)
[2018-02-22] MEDS ORDERED: INSU100V11 SUBCUT (10:04)
[2018-02-22] MEDS ORDERED: DEXT15LI GT (10:04)
[2018-02-22] MEDS ORDERED: POTA20TA83 PO (10:04)
[2018-02-22] MEDS ORDERED: SSREG SUBCUT (10:04)
[2018-02-22] MEDS ORDERED: Fingerstick Blood Glucose Test XX (10:04)
[2018-02-22] MEDS ORDERED: ALBUTEROL SULFATE 0.083% 2.5 MG/3 ML VIAL.NEB INH PRN (10:58)
[2018-02-22 11:23] VITALS: BP_SYST 138
[2018-02-22 15:32] VITALS: BP_SYST 146
[2018-02-22 15:47] VITALS: BP_SYST 137
== END 2018-02-22 20:20 | DRG 813 ==
LOC: SED 07:27 → SMU 12:24
PROVIDERS: ADMIT General Practice; ATTEND General Practice
PROC: 0D20XUZ Change Feeding Device in Upper Intestinal Tract, External Approach (ICD-10-PCS; principal; 2018-02-08)
PROC: 0D20XUZ Change Feeding Device in Upper Intestinal Tract, External Approach (ICD-10-PCS; 2018-02-18)
DX: T85.528A Displacement of other gastrointestinal prosthetic devices, implants and grafts, initial encounter (principal); N17.0 Acute kidney failure with tubular necrosis; J69.0 Pneumonitis due to inhalation of food and vomit; E43 Unspecified severe protein-calorie malnutrition; A41.9 Sepsis, unspecified organism; G93.40 Encephalopathy, unspecified; E87.0 Hyperosmolality and hypernatremia; K94.22 Gastrostomy infection; L03.311 Cellulitis of abdominal wall; T85.79XA Infection and inflammatory reaction due to other internal prosthetic devices, implants and grafts, initial encounter; T85.598A Other mechanical complication of other gastrointestinal prosthetic devices, implants and grafts, initial encounter; I13.0 Hypertensive heart and chronic kidney disease with heart failure and stage 1 through stage 4 chronic kidney disease, or unspecified chronic kidney disease; I50.9 Heart failure, unspecified; N18.4 Chronic kidney disease, stage 4 (severe); R13.10 Dysphagia, unspecified; E11.21 Type 2 diabetes mellitus with diabetic nephropathy; N39.0 Urinary tract infection, site not specified; E86.1 Hypovolemia; G40.909 Epilepsy, unspecified, not intractable, without status epilepticus; E11.22 Type 2 diabetes mellitus with diabetic chronic kidney disease; Z16.24 Resistance to multiple antibiotics; Z16.19 Resistance to other specified beta lactam antibiotics; Y83.8 Other surgical procedures as the cause of abnormal reaction of the patient, or of later complication, without mention of misadventure at the time of the procedure; Y73.1 Therapeutic (nonsurgical) and rehabilitative gastroenterology and urology devices associated with adverse incidents; F03.90 Unspecified dementia, unspecified severity, without behavioral disturbance, psychotic disturbance, mood disturbance, and anxiety; E87.6 Hypokalemia; E83.41 Hypermagnesemia; D64.9 Anemia, unspecified; E83.52 Hypercalcemia; E86.0 Dehydration; B96.1 Klebsiella pneumoniae [K. pneumoniae] as the cause of diseases classified elsewhere; M19.90 Unspecified osteoarthritis, unspecified site; I25.10 Atherosclerotic heart disease of native coronary artery without angina pectoris; Z74.01 Bed confinement status; Z86.73 Personal history of transient ischemic attack (TIA), and cerebral infarction without residual deficits; Y92.89 Other specified places as the place of occurrence of the external cause; Z68.21 Body mass index [BMI] 21.0-21.9, adult; Z79.899 Other long term (current) drug therapy; Z86.79 Personal history of other diseases of the circulatory system
CPT/HCPCS: 36415; 36600; 71045; 74018; 74240-TC; 76770; 80048; 80053; 81000-TC; 82435-TC; 82803-TC; 82962; 83036; 83540-TC; 83550-TC; 83735-TC; 84100-TC; 84302-TC; 85007; 85025; 85027; 85610-TC; 87040-TC; 87070-TC; 87081; 87086; 87186-TC; 94640; 94760; 99285; J0278; J0696; J0713; J1644; J1815; J2060; J2270; J2430; J3480; J7030; J7040; J7042; J7050; J7060; J7613; Q9963